=== PATIENT | female | born 1955 | race Caucasian/White ===

== ENCOUNTER 2017-05-18 10:04 | Emergency (ER) | payer OTHER ==
[2017-05-18 10:17] VITALS: BP 154/94; PULSE 99; RESP 18; TEMP 97.9; O2SAT 96
== END 2017-05-18 11:18 | disposition home or self-care (01) | DRG 192 ==
LOC: ED 10:04
DX: J44.1 Chronic obstructive pulmonary disease with (acute) exacerbation (principal); Z72.0 Tobacco use
CPT/HCPCS: 71046; 87430; 87804; 99282

== ENCOUNTER 2017-05-21 15:50 | Emergency (ER) | payer OTHER ==
[2017-05-21] MEDS ORDERED: ALBUTEROL/IPRATROPIUM 1 VIAL SOL INH ONE ×2 (15:58→17:05)
[2017-05-21] MEDS ORDERED: ALBUTEROL/IPRATROPIUM 1 VIAL SOL ONE ×2 (15:58→17:05)
[2017-05-21] MEDS ORDERED: PREDNISONE 20 MG TAB PO ONE (16:23)
[2017-05-21] MEDS ORDERED: PREDNISONE 20 MG TAB ONE (16:24)
[2017-05-21] MEDS ORDERED: CODEINE/GUAIFENESIN 5 ML SOL PO ONE (16:26)
[2017-05-21] MEDS ORDERED: CODEINE/GUAIFENESIN 5 ML SOL ONE ×2 (16:28→16:29)
[2017-05-21] MEDS ORDERED: RACEPINEPHRINE NEB 1 VIAL SOL ONE (17:25)
[2017-05-21] MEDS ORDERED: RACEPINEPHRINE NEB 1 VIAL SOL NEB ONE (17:25)
[2017-05-21 17:48] LABS: ABG PH 7.31 (7.35-7.45)
[2017-05-21 18:05] LABS: BASOPHILS % (AUTO) 1 % (0-3); EOSINOPHILS % (AUTO) 0 % (0-9); HEMATOCRIT 48 % (35-47); MEAN CORPUSCULAR HGB CONC 33.6 gm/dl (32.0-36.0); MEAN CORPUSCULAR VOLUME 89 fL (81-99); NEUTROPHILS % (AUTO) 62.9 % (37-80)
[2017-05-21 18:19] VITALS: TEMP 98.7
[2017-05-21 18:20] LABS: CALCIUM 9.5 mg/dl (8.5-10.1); GLOM FILT RATE 93 mL/min (>60); POTASSIUM 3.8 mMol/L (3.5-5.1); SODIUM 137 mMol/L (136-145)
[2017-05-21 18:49] VITALS: BP 155/88; PULSE 114; RESP 17; O2SAT 95
== END 2017-05-21 19:14 | disposition short-term general hospital (02) | DRG 190 ==
LOC: ED 15:50
DX: J44.1 Chronic obstructive pulmonary disease with (acute) exacerbation (principal); J96.90 Respiratory failure, unspecified, unspecified whether with hypoxia or hypercapnia; J40 Bronchitis, not specified as acute or chronic
CPT/HCPCS: 36415; 36600; 71045; 80048; 82803; 83880; 84484; 85025; 93005; 99284; 99285; J7620; A9270-GY

== ENCOUNTER 2018-10-14 09:00 | Emergency (ER) | payer OTHER ==
[2018-10-14 09:30] VITALS: BP 159/95; PULSE 81; RESP 18; TEMP 97.9; O2SAT 96
== END 2018-10-14 11:07 | disposition home or self-care (01) | DRG 538 ==
LOC: ED 09:00
DX: S76.311A Strain of muscle, fascia and tendon of the posterior muscle group at thigh level, right thigh, initial encounter (principal)
CPT/HCPCS: 99282